=== PATIENT | female | born 1995 | race Two or more races ===

== ENCOUNTER 2020-07-11 13:15 | Inpatient (IN) | payer OTHER ==
[~2020-07-11] VITALS: Ht 160 cm; Wt 64.0 kg
[2020-07-19] MEDS ORDERED: PRENATAL + DHA1 EAC1 PO (09:00)
== END 2020-07-20 17:42 | disposition home or self-care (01) | DRG 805 ==
LOC: LDR 07-18 08:39 → OB/GYN 07-18 21:51 → SURH 07-23 13:15
PROVIDERS: ADMIT Specialist; ATTEND Specialist
PROC: 10E0XZZ Delivery of Products of Conception, External Approach (ICD-10-PCS; principal; 2020-07-18)
PROC: 10907ZC Drainage of Amniotic Fluid, Therapeutic from Products of Conception, Via Natural or Artificial Opening (ICD-10-PCS; 2020-07-18)
PROC: 0W8NXZZ Division of Female Perineum, External Approach (ICD-10-PCS; 2020-07-18)
PROC: 4A1HXFZ Monitoring of Products of Conception, Cardiac Rhythm, External Approach (ICD-10-PCS; 2020-07-18)
DX: O98.52 Other viral diseases complicating childbirth (principal); U07.1 COVID-19; Z37.0 Single live birth; O99.824 Streptococcus B carrier state complicating childbirth; Z3A.39 39 weeks gestation of pregnancy

== ENCOUNTER 2020-07-18 07:39 | Outpatient (CLI) | payer OTHER ==
[2020-07-19] MEDS ORDERED: PRENATAL + DHA1 EAC1 PO (09:00)
== END 2020-07-18 10:06 | disposition still patient (30) ==
LOC: NST 07:39
PROVIDERS: ATTEND Specialist
DX: Z34.83 Encounter for supervision of other normal pregnancy, third trimester (principal)